=== PATIENT | male | born 1945 | race Caucasian/White ===

== ENCOUNTER 2016-05-22 11:23 | Inpatient (IN) | payer OTHER ==
[~2016-05-22] VITALS: Ht 175.3 cm; Wt 57.2 kg
[2016-05-22 14:25] LABS: CHLORIDE 107 mEq/L (99-109); POTASSIUM 4.5 mEq/L (3.7-5.4); SODIUM 140 mEq/L (136-147)
[2016-05-22 14:27] LABS: EOSINOPHIL (%) 0 % (0-5); GLUCOSE 94 mg/dL (70-99); HEMATOCRIT 29.9 % (38.0-50.0); IMMATURE GRANULOCYTE (%) 0.4 % (0.0-0.7); IMMATURE GRANULOCYTE COUNT 0.3 K/uL; LYMPHOCYTE COUNT 0.9 K/uL (1.0-2.8); MCH 34.5 PG (29.0-34.0); MCHC 31.8 G/DL (30.0-36.0); MCV 108.7 FL (86-99); MEAN PLAT.VOLUME 9.5 uM^3 (9.0-12.4); MONOCYTE (%) 6.3 % (3-12); MONOCYTE COUNT 0.5 K/uL (0-0.8); NEUTROPHIL (%) 82.2 % (45-76); NEUTROPHIL COUNT 6.9 K/uL (1.8-6.4); PLATELET COUNT 244 K/uL (156-360); RBC DIS.WIDTH-CV 16.2 % (11.8-14.6); RBC DIS.WIDTH-SD 63.1 % (39-53); RED BLOOD COUNT 2.75 M/uL (4.00-5.50); WHITE BLOOD COUNT 8.4 K/uL (4.1-10.2)
[2016-05-22 14:28] LABS: ANION GAP 10 MEQ/L (2-14)
[2016-05-22 14:30] LABS: GFR ESTIMATE (CALCULATED) > 59 mL/min/
[2016-05-22 14:31] LABS: UREA NITROGEN (BUN) 21 mg/dL (9-23)
[2016-05-22 17:21] LABS: ABSOLUTE RETICULOCYTE CT. 0.04 M/uL (0.02-0.08); RETIC HGB EQUIVALENT 35.2 (28-36); RETICULOCYTE COUNT 1.6 % (0.5-1.8)
[2016-05-22 17:48] LABS: IRON 13 MCG/DL (35-150)
[2016-05-22 18:03] LABS: LACTATE DEHYDROGENASE 168 IU/L (20-246)
[2016-05-22 19:29] LABS: FERRITIN 815 NG/ML (22-322)
[2016-05-22 20:15] VITALS: BP 142/65
[2016-05-22 22:50] VITALS: BP 126/63
[2016-05-23 03:13] VITALS: BP 124/62
[2016-05-23 03:21] LABS: BILIRUBIN NEGATIVE; BLOOD NEGATIVE; COLOR YELLOW ((YELLOW)); GLUCOSE (STRIP) NEGATIVE; KETONES NEGATIVE; LEUKOCYTES NEGATIVE; NITRITE NEGATIVE; PROTEIN (STRIP) NEGATIVE
[2016-05-23 03:23] LABS: ADD MIUA? NO
[2016-05-23 07:08] LABS: HEMATOCRIT 25.3 % (38.0-50.0); MCH 34.6 PG (29.0-34.0); MCHC 32.4 G/DL (30.0-36.0); MCV 106.8 FL (86-99); MEAN PLAT.VOLUME 9.6 uM^3 (9.0-12.4); PLATELET COUNT 200 K/uL (156-360); RBC DIS.WIDTH-CV 16.5 % (11.8-14.6); RBC DIS.WIDTH-SD 64.6 % (39-53); RED BLOOD COUNT 2.37 M/uL (4.00-5.50); WHITE BLOOD COUNT 6.3 K/uL (4.1-10.2)
[2016-05-23 07:20] VITALS: BP 105/55
[2016-05-23 07:32] LABS: ALKALINE PHOSPHATASE 53 IU/L (3-129); ANION GAP 6 MEQ/L (2-14); CHLORIDE 106 MEQ/L (99-109); GFR ESTIMATE (CALCULATED) > 59 mL/min/; GLUCOSE 81 mg/dL (70-99); MAGNESIUM 1.9 mg/dl (1.3-2.7); POTASSIUM 4.4 MEQ/L (3.7-5.4); SAMPLE HEMOLYSIS CHECK 0; SAMPLE ICTERIC CHECK 0; SAMPLE LIPEMIA CHECK 0; SODIUM 138 MEQ/L (136-147); TOTAL BILIRUBIN 0.7 MG/DL (0.0-1.0); UREA NITROGEN (BUN) 15 mg/dL (9-23)
[2016-05-23 10:52] LABS: INFLUENZA A VIRAL ANTIGEN NEGATIVE; INFLUENZA B VIRAL ANTIGEN NEGATIVE
[2016-05-23 11:58] VITALS: BP 130/66
[2016-05-23 17:02] VITALS: BP 121/76
[2016-05-23 19:28] VITALS: BP 123/75
[2016-05-24 00:19] VITALS: BP 119/70
[2016-05-24 07:26] LABS: HEMATOCRIT 28.9 % (38.0-50.0); MCH 33.1 PG (29.0-34.0); MCHC 31.5 G/DL (30.0-36.0); MCV 105.1 FL (86-99); MEAN PLAT.VOLUME 9.8 uM^3 (9.0-12.4); PLATELET COUNT 249 K/uL (156-360); RBC DIS.WIDTH-CV 16.5 % (11.8-14.6); RBC DIS.WIDTH-SD 63.3 % (39-53); RED BLOOD COUNT 2.75 M/uL (4.00-5.50); WHITE BLOOD COUNT 6.3 K/uL (4.1-10.2)
[2016-05-24 07:34] LABS: EOSINOPHIL (%) 1.1 % (0-5); EOSINOPHIL COUNT 0.1 K/uL (0-0.3); IMMATURE GRANULOCYTE (%) 0.6 % (0.0-0.7); LYMPHOCYTE COUNT 1.1 K/uL (1.0-2.8); MONOCYTE COUNT 0.6 K/uL (0-0.8); NEUTROPHIL (%) 71.2 % (45-76); NEUTROPHIL COUNT 4.5 K/uL (1.8-6.4)
[2016-05-24 07:51] LABS: ALKALINE PHOSPHATASE 60 IU/L (3-129); ANION GAP 4 MEQ/L (2-14); CHLORIDE 104 MEQ/L (99-109); GFR ESTIMATE (CALCULATED) > 59 mL/min/; GLUCOSE 90 mg/dL (70-99); POTASSIUM 4.4 MEQ/L (3.7-5.4); SAMPLE HEMOLYSIS CHECK 0; SAMPLE ICTERIC CHECK 0; SAMPLE LIPEMIA CHECK 0; SODIUM 137 MEQ/L (136-147); UREA NITROGEN (BUN) 14 mg/dL (9-23)
[2016-05-24 07:52] LABS: TOTAL BILIRUBIN 0.4 MG/DL (0.0-1.0)
[2016-05-24 09:17] LABS: INTERNAL CONTROL VALID? YES
[2016-05-24 15:41] VITALS: BP 136/65
[2016-05-24 19:47] VITALS: BP 130/69
[2016-05-25] VITALS (7 sets, daily range): BP systolic 109–132; BP diastolic 57–70
[2016-05-26 03:06] VITALS: BP 97/55
[2016-05-26 07:08] LABS: HEMATOCRIT 30.1 % (38.0-50.0); MCH 34.2 PG (29.0-34.0); MCHC 31.9 G/DL (30.0-36.0); MCV 107.1 FL (86-99); MEAN PLAT.VOLUME 9.8 uM^3 (9.0-12.4); PLATELET COUNT 271 K/uL (156-360); RBC DIS.WIDTH-CV 16.2 % (11.8-14.6); RBC DIS.WIDTH-SD 62.9 % (39-53); RED BLOOD COUNT 2.81 M/uL (4.00-5.50); WHITE BLOOD COUNT 6.7 K/uL (4.1-10.2)
[2016-05-26 07:30] LABS: EOSINOPHIL (%) 1.4 % (0-5); EOSINOPHIL COUNT 0.1 K/uL (0-0.3); IMMATURE GRANULOCYTE (%) 1.4 % (0.0-0.7); IMMATURE GRANULOCYTE COUNT 0.1 K/uL; LYMPHOCYTE COUNT 1.3 K/uL (1.0-2.8); MONOCYTE (%) 10.8 % (3-12); MONOCYTE COUNT 0.7 K/uL (0-0.8); NEUTROPHIL (%) 66.4 % (45-76); NEUTROPHIL COUNT 4.4 K/uL (1.8-6.4)
[2016-05-26 07:38] LABS: ANION GAP 5 MEQ/L (2-14); CHLORIDE 101 MEQ/L (99-109); GFR ESTIMATE (CALCULATED) > 59 mL/min/; GLUCOSE 89 mg/dL (70-99); POTASSIUM 4.7 MEQ/L (3.7-5.4); SAMPLE HEMOLYSIS CHECK 0; SAMPLE ICTERIC CHECK 0; SAMPLE LIPEMIA CHECK 0; SODIUM 135 MEQ/L (136-147); UREA NITROGEN (BUN) 21 mg/dL (9-23)
[2016-05-26 07:48] VITALS: BP 91/52
[2016-05-26 12:03] LABS: POC NON-PRINT COM 1 ND
[2016-05-26 12:26] VITALS: BP 88/49
[2016-05-26 15:09] VITALS: BP 118/59
[2016-05-26] MEDS ORDERED: PANTOPRAZOLE SO40 MG PO (18:33)
[2016-05-26] MEDS ORDERED: AUGMENTIN875 MG PO (18:33)
[2016-05-26] MEDS ORDERED: POLYETHYLENE GL17 GM PO (18:33)
[2016-05-26] MEDS ORDERED: GABAPENTIN100 MG PO (18:33)
[2016-05-26] MEDS ORDERED: Vitamin B-12 SL (18:34)
[2016-05-26] MEDS ORDERED: COMBIVENT RESPIM4 GM IH (18:34)
[2016-05-26 23:04] VITALS: BP 101/51
[2016-05-27 07:34] VITALS: BP 128/58
== END 2016-05-27 12:28 | DRG 193 ==
LOC: EME 11:23 → 5EAST 16:12 → EDOF 16:12 → 5EAST 19:55
PROVIDERS: Hospitalist; Internal Medicine; Physician Assistant
DX: J18.9 Pneumonia, unspecified organism (principal); E40 Kwashiorkor; D51.3 Other dietary vitamin B12 deficiency anemia; M79.89 Other specified soft tissue disorders; Z59.0 Homelessness; Z23 Encounter for immunization; Z68.1 Body mass index [BMI] 19.9 or less, adult
CPT/HCPCS: 71020; 71260; 80048; 80053; 80069; 81003; 82272; 82607; 82728; 82746; 83540; 83605; 83615; 83735; 83880; 84100; 84466; 85025; 85027; 85045; 87040; 87449; 87502; 93306; 93970; 94010; 97530 GP; 99202; 99281; 99285; G0008; J0456; J0696; J1644; J2543; J3370; J7030; J7050